=== PATIENT | female | born 2005 | race Caucasian/White ===

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

== ENCOUNTER 2023-07-17 12:34 | Emergency (ER) | payer SELFPAY ==
[2023-07-17 12:59] VITALS: BP 130/74; PULSE 98; RESP 19; TEMP 97.9; BMI 28.9
[2023-07-17] MEDS ORDERED: ONDANSETRON *ODT* 4 MG TABLET ONE (15:24)
[2023-07-17] MEDS: ONDANSETRON *ODT* 4 MG TABLET SL ONE (15:27)
== END 2023-07-17 17:24 | disposition home or self-care (01) ==
LOC: JERFT 12:34
DX: K52.9 Noninfective gastroenteritis and colitis, unspecified (principal); R11.10 Vomiting, unspecified
CPT/HCPCS: 99283-25; Q0162